=== PATIENT | female | born 1990 | race Caucasian/White ===

== ENCOUNTER 2018-06-13 20:16 | Inpatient (IN) ==
--- NOTE | 2018-06-13 21:38 | ED ---
History of Present Illness Primary Care Physician: [facility] Chief Complaint: Contractions History of Present Illness: 27-year-old at 39 weeks complains of contractions today Weeks Gestation:: 39 Para: 0 : 2 Review of Systems All other systems reviewed negative except as stated in HPI Medications and Allergies Allergies Allergy/AdvReac Type Severity Reaction Status Date / Time No Known Allergies Allergy none Uncoded 06/13/18 20:50 Home Medications Medication Instructions Recorded Confirmed Type PNV cmb#95-ferrous fumarate-FA 1 tab PO DAILY 06/13/18 06/13/18 History [] ferrous sulfate 1 tab PO DAILY 06/13/18 06/13/18 History Exam Vital signs: Vital Signs 06/13/18 20:47 06/13/18 20:48 06/13/18 20:49 Temperature 97.8 F Pulse Rate 86 85 Respiratory Rate 18 Blood Pressure 146/91 H 136/85 06/13/18 20:54 06/13/18 21:00 06/13/18 21:16 Temperature Pulse Rate 87 90 83 Respiratory Rate Blood Pressure 136/86 146/82 H 120/71 Intake & Output 06/13/18 06/13/18 06/14/18 06:59 18:59 06:59 Weight 75.296 kg - Constitutional mild distress - Routine HEENT Exam ENT: Present: mucous membranes moist - Routine Neck Exam Present: supple - Routine Chest/Breast/Axilla Exam Chest wall: Absent: tenderness - Routine Respiratory Exam Present: CTA bilaterally - Routine Cardiovascular Exam Present: RRR - Routine Abdominal Exam Present: soft Comments: Gravid contractions palpable - Routine Exam Comments: Cervix 1 cm dilated 50% effaced -3 station heart rate baseline 120 Results - Imaging Bedside ultrasound reveals an DARVIN of 6.49 only 1 quadrant? Possible meconium Assessment and Plan - Diagnosis (1) 39 weeks gestation of Code(s): Z3A.39 - 39 weeks gestation of Status: Acute (2) Oligohydramnios Code(s): O41.00X0 - Oligohydramnios, unspecified trimester, not applicable or unspecified Status: Acute - Plan Discussed with the patient near oligo present-suspect possible meconium. Err on the side of caution admit and induce labor no benefit prolonging Discharge Plan - Discharge Condition Condition: Good - Physicians Team Primary Care Provider: Ximena Clayton Attending Provider: Toya Pa - Rxs /Orders / Referrals /Forms Prescriptions: No Action ferrous sulfate 325 mg (65 mg iron) Tablet 1 tab PO DAILY PNV cmb#95-ferrous fumarate-FA [] 28 mg iron- 800 mcg Tablet 1 tab PO DAILY Referrals: Ximena Clayton MD [Primary Care Provider] - See Instructions
[2018-06-13] MEDS ORDERED: Sod Chloride 0.9% Inj 1,000 ML IV.CONT PRN (22:09)
[2018-06-13] MEDS ORDERED: Naloxone Inj 0.4 MG/ML Vial IV.PUSH PRN (22:09)
[2018-06-13] MEDS ORDERED: Sodium Chlor 0.9% Inj 500 ML IV.SIG PRN (22:09)
[2018-06-13] MEDS ORDERED: Oxytocin 30 Units/500ml Premix 30 UNITS/500 ML BAG IV.SIG ONE (22:09)
[2018-06-13] MEDS ORDERED: fentaNYL Citrate Inj 100 MCG/2 ML Ampul IV.PUSH PRN ×2 (22:09)
[2018-06-13] MEDS ORDERED: Citric Acid/Sodium Citrate Liq 30 ML UDC PO SCH (22:15)
--- NOTE | 2018-06-13 22:22 | P.HPOB ---
Patient Name: Veronica Solorzano Date of : 89 Patient Status: Inpatient Attending Provider: Toya Pa Date: 06/13/18 21:34 Initialization Date: 06/13/18 21:34 History of Present Illness Primary Care Physician: [facility] Chief Complaint: Contractions History of Present Illness: 27-year-old at 39 weeks complains of contractions today Weeks Gestation:: 39 Para: 0 : 2 Review of Systems All other systems reviewed negative except as stated in HPI Medications and Allergies Allergies Allergy/AdvReac Type Severity Reaction Status Date / Time No Known Allergies Allergy none Uncoded 06/13/18 20:50 Home Medications Medication Instructions Recorded Confirmed Type PNV cmb#95-ferrous fumarate-FA 1 tab PO DAILY 06/13/18 06/13/18 History [] ferrous sulfate 1 tab PO DAILY 06/13/18 06/13/18 History Exam Vital signs: Vital Signs 06/13/18 20:47 06/13/18 20:48 06/13/18 20:49 Temperature 97.8 F Pulse Rate 86 85 Respiratory Rate 18 Blood Pressure 146/91 H 136/85 06/13/18 20:54 06/13/18 21:00 06/13/18 21:16 Temperature Pulse Rate 87 90 83 Respiratory Rate Blood Pressure 136/86 146/82 H 120/71 Intake & Output 06/13/18 06/13/18 06/14/18 06:59 18:59 06:59 Weight 75.296 kg - Constitutional mild distress - Routine HEENT Exam ENT: Present: mucous membranes moist - Routine Neck Exam Present: supple - Routine Chest/Breast/Axilla Exam Chest wall: Absent: tenderness - Routine Respiratory Exam Present: CTA bilaterally - Routine Cardiovascular Exam Present: RRR - Routine Abdominal Exam Present: soft Comments: Gravid contractions palpable - Routine Exam Comments: Cervix 1 cm dilated 50% effaced -3 station heart rate baseline 120 accelerations are present however episodic small variables noted ( decels ) short and quick Results - Imaging Bedside ultrasound reveals an DARVIN of 6.49 only 1 quadrant? Possible meconium Assessment and Plan - Diagnosis (1) 39 weeks gestation of Code(s): Z3A.39 - 39 weeks gestation of Status: Acute (2) Oligohydramnios Code(s): O41.00X0 - Oligohydramnios, unspecified trimester, not applicable or unspecified Status: Acute - Plan Discussed with the patient near oligo present-suspect possible meconium. Err on the side of caution admit and induce labor no benefit prolonging Discharge Plan - Discharge Condition Condition: Good - Physicians Team Primary Care Provider: Ximena Clayton Attending Provider: Toya Pa - Rxs /Orders / Referrals /Forms Prescriptions: No Action ferrous sulfate 325 mg (65 mg iron) Tablet 1 tab PO DAILY PNV cmb#95-ferrous fumarate-FA [] 28 mg iron- 800 mcg Tablet 1 tab PO DAILY Referrals: Ximena Clayton MD [Primary Care Provider] - See Instructions
[2018-06-13] MEDS ORDERED: Famotidine PF Inj 20 MG/2 ML Vial IV.PUSH SCH (23:15)
[2018-06-13 23:32] LABS: Baso % (Auto) 0.2 % (0.0-2.0); Eos # (Auto) 0.2 th/mm3 (0.0-0.4); Hematocrit 33.6 % (35.0-46.0); Hemoglobin 11.2 gm/dL (11.6-15.3); Lymph # (Auto) 1.8 th/mm3 (1.0-4.8); Lymph % (Auto) 20.4 % (9.0-44.0); Mean Corpuscular HGB Conc 33.3 % (32.0-36.0); Mean Corpuscular Hemoglobin 26.8 pg (27.0-34.0); Mean Corpuscular Volume 80.6 fL (80.0-100.0); Mean Platelet Volume 9.5 fL (7.0-11.0); Mono # (Auto) 0.6 th/mm3 (0.0-0.9); Mono % (Auto) 6.9 % (0.0-8.0); Neut # (Auto) 6.3 th/mm3 (1.8-7.7); Neut % (Auto) 70.5 % (16.0-70.0); Platelet Count 171 th/mm3 (150-450); Red Blood Count 4.17 mil/mm3 (4.00-5.30); Red Cell Distribution Width 13.6 % (11.6-17.2)
[2018-06-13 23:52] LABS: Amorphous Sediment,Urine Rare /hpf; Bacteria,Urine Rare /hpf; Bilirubin,Urine Negative (Negative); Clarity,Urine Cloudy (Clear); Color,Urine Yellow (Yellw/Straw); Glucose,Urine (UA) Negative (Negative); Leukocyte Esterase,Urine Moderate (Negative); Mucus,Urine Few /lpf (Occasional); Nitrite,Urine Negative (Negative); Specific Gravity,Urine 1.008 (1.002-1.035); Squamous Epithelial Cell,Urine 3 /hpf (0-5)
[2018-06-14] MEDS ORDERED: fentaNYL 2MCG-Bupiv 0.125% Epi 150 ML EPIDURAL ONE (00:42)
[2018-06-14] MEDS ORDERED: Lidocaine PF 1.5% Inj 20 ML Ampule ONE (00:55)
[2018-06-14] MEDS ORDERED: Lidocaine 2%/Epinephrine 1:100,000 Inj 20 ML Vial ONE (00:58)
[2018-06-14] MEDS ORDERED: fentaNYL 2MCG-Bupiv 0.125% Epi 150 ML EPIDURAL PRN (01:30)
[2018-06-14] MEDS ORDERED: fentaNYL Citrate Inj 100 MCG/2 ML Ampul EPIDURAL ONE (01:30)
[2018-06-14 02:54] LABS: Amphetamine Urine With Conf Neg (Neg); Benzodiazepine Urine With Conf Neg (Neg)
[2018-06-14] MEDS ORDERED: Oxytocin 30 Units/500ml Premix 30 UNITS/500 ML BAG IV.CONT PRN (05:44)
--- NOTE | 2018-06-14 13:58 | P.OBLABOR ---
Subjective Interval history: Patient reports some nausea and emesis with PO in the morning. She is otherwise laboring well and has no concerns at this time. Objective Vital Signs: Vital Signs - 8 hr 06/14/18 06:01 06/14/18 06:31 06/14/18 07:00 Temperature 98.7 F Pulse Rate 99 H 101 H Respiratory Rate 18 18 Blood Pressure 125/67 112/57 L 06/14/18 07:01 06/14/18 07:36 06/14/18 07:45 Temperature 99.3 F Pulse Rate 97 H 106 H Respiratory Rate 16 Blood Pressure 112/73 130/84 06/14/18 08:01 06/14/18 08:30 06/14/18 09:29 Temperature 98.4 F Pulse Rate 102 H 99 H Respiratory Rate Blood Pressure 127/77 123/72 06/14/18 09:31 06/14/18 10:00 06/14/18 10:53 Temperature Pulse Rate 102 H 97 H 97 H Respiratory Rate 18 18 Blood Pressure 130/78 137/84 125/76 06/14/18 11:00 06/14/18 11:01 06/14/18 11:36 Temperature 98.4 F 98.9 F Pulse Rate 98 H 93 H Respiratory Rate 18 Blood Pressure 113/67 110/61 06/14/18 12:00 06/14/18 12:30 06/14/18 13:02 Temperature Pulse Rate 100 H 102 H 100 H Respiratory Rate Blood Pressure 113/65 129/78 117/75 06/14/18 13:30 Temperature Pulse Rate 92 H Respiratory Rate Blood Pressure 116/66 Objective: General: Alert, well appearing, in no acute distress Skin: Warm and dry HEENT: Atraumatic. Moist mucus membranes Cardiac: Regular rate and rhythm without murmur Pulmonary: No increased work of breathing. Clear to auscultation bilaterally with good air movement. Abdominal: Non-tender. + Bowel sounds. Gravid uterus Extremities: 2+ pedal pulses, no edema, no calf tenderness Genitourinary: Last Cervical Exam: / -1 Membranes: AROM at 0030 on 06/14/18 Uterine Contractions: every 2-4 minutes FHT's: Category: 2 Baseline: 130 Reactive: no Variability: moderate Decels: Intermittent late and variables Weeks Gestation: 39 Patient Started Active Labor: Yes Medical Induction of Labor: No Artificial Rupture of Membrane: Yes Artificial ROM Date: 06/14/18 Artificial ROM Time: 00:33 Assessment and Plan - Diagnosis (1) 39 weeks gestation of Code(s): Z3A.39 - 39 weeks gestation of Status: Acute (2) Oligohydramnios Code(s): O41.00X0 - Oligohydramnios, unspecified trimester, not applicable or unspecified Status: Acute - Plan Patient is a at 39 weeks 4 days in active labor -Has had nausea and emesis, Zofran 4mg IV given at 10:00 -Pitocin currently a 4mu/min -At this point she has adequate contractions and is progressing well -FHT shows some accelerations, but does not always meet full reactive criteria -There are some decelerations with <50% of contractions -Variability remains moderate -Continue current management with close monitoring
[2018-06-14] MEDS ORDERED: Morphine Sulfate PF Inj 5 MG/10 ML Ampul ONE (16:06)
[2018-06-14] MEDS ORDERED: ceFAZolin 2 GM Premix Inj 2 GM/50 ML PIGGYBACK IV.SIG PRN (16:09)
--- NOTE | 2018-06-14 16:12 | P.OBGPN ---
Pt has had several mild decelerations, however she has maintained moderate variability. I personally examined her and she was 5-6/90/-3 with bloody fluid and OP with compound hand presentation. Manual rotation of fetus was successful however FHTs dropped to 80s. Repositioning and O2 increased FHTs to 100s but still lower than baseline. Pt was counseled on NRFHTs remote from delivery and high station concerning for ability to have a successful vaginal delivery. She agreed to proceed with c/s delivery. R/B/A of were discussed with the patient. Specifically we reviewed risks of bleeding, infection, pain, injury to baby or internal organs/nerves/ vessels/structures. She voiced understanding, all questions were answered, and consents were signed. Orders have been placed, bicitra and antibiotics administered, SCDs and de león placed, and RN/ANES/NICU/Charge notified.
[2018-06-14] MEDS ORDERED: Citric Acid/Sodium Citrate Liq 30 ML UDC PO SCH (16:15)
[2018-06-14 17:00] LABS: Cord Arterial Blood HCO3 25.7
[2018-06-14] MEDS ORDERED: Simethicone 80 MG Chew Tablet PO PRN (17:22)
[2018-06-14] MEDS ORDERED: Oxytocin 30 Units/500ml Premix 30 UNITS/500 ML BAG IV.SIG ONE (17:22)
--- NOTE | 2018-06-14 17:26 | P.OP ---
- Preoperative Diagnosis (1) Non-reassuring electronic monitoring tracing (2) 39 weeks gestation of (3) Oligohydramnios Date of procedure: 06/14/18 Procedure: 1'LTCS Anesthesia: epidural Surgeon: Rigoberto Cordova MD Estimated blood loss (mL): 800 IV fluids (mL): 1,000 Urine output (mL): 100 Pathology: other (cord blood, cord pH) Operation and Findings: Antibiotics: 2g ancef DVT prophylaxis: SCDs were in place and active throughout the entire procedure Findings: vtx male delivered at 18:25 wt 3200g with APGARs 8/9, normal tubes/ ovaries Complications: none Disposition: to PACU in stable condition Indication: 27y/o @ 39.4wks admitted for oligo and underwent IOL. Had OP presentation, protracted labor, and NRFHTs remote from delivery. Technique: The R/B/A were discussed with the pt, all questions answered, and consents signed. The pt was taken to the operating room where epidural anesthesia was found to be adequate. She was prepped and draped in the normal sterile fashion in the dorsal supine position with leftward tilt. A Pfannenstiel skin incision was made with the scalpel and carried through to the underlying layer of fascia. The fascia was incised in the midline and the incision extended laterally with Worthington scissors. The superior aspect of the fascial incision was grasped with Anton clamps, elevated, and the underlying rectus muscles dissected off bluntly and with Worthington scissors. Attention was then turned to the inferior aspect of this incision which, in a similar fashion, was grasped, tented up with Anton clamps, and the rectus muscles dissected off bluntly and with Worthington scissors. The rectus muscles were in the midline , and the peritoneum identified and entered bluntly. The peritoneal incision was stretched with good visualization of the bladder. The bladder blade was inserted and the vesicouterine peritoneum identified, grasped with pick-ups, and entered sharply with Metzenbaum scissors. This incision was extended laterally and a bladder flap created digitally. The bladder blade was then reinserted and the lower uterine segment incised in a transverse fashion with the scalpel. The uterine incision was stretched superiorly and inferiorly. The bladder blade was removed and the 's head delivered atraumatically followed by the body. Delayed cord clamping ensued for 45sec while the infant was dried, suctioned, and stimulated. The cord was double clamped and cut and handed off to the waiting team. The placenta expelled with manual fundal massage. The uterus was exteriorized and cleared of all clots and debris. The uterine incision was repaired with 0- vicryl in a running, locked fashion. A second layer using 0-monocryl suture was used. Extra bleeding ensued. Figure of eight sutures using additional 0- monocryl were used to control. The underneath portion of the bladder was also oversewn with 3-0 monocryl. The posterior cul-de-sac was suctioned and the uterus was returned to the abdomen. The gutters were cleared of all clots and debris. The rectus fascia was reapproximated with a figure of eight stitch using monocryl. The underneath fascia was inspected and found to be hemostatic. The fascia was closed with 0-vicryl in a running fashion. The subcutaneous layer was reapproximated with plain gut running in two layers. The skin was closed with 4-0 monocryl and the incision dressed appropriately. The patient tolerated the procedure well. She was taken to the recovery room in stable condition. Sponge, lap, instrument, and needle counts were correct x3.
[2018-06-14] MEDS ORDERED: ceFAZolin Inj 2,000 MG in Sodium Chlor 0.9% Inj 80 ML IV.SIG SCH (18:00)
[2018-06-14] MEDS ORDERED: Ketorolac Inj 30 MG/ML (IVP) Vial ONE (18:17)
[2018-06-14] MEDS: Ketorolac Inj 30 MG/ML (IVP) Vial IV.PUSH PRN (18:28)
[2018-06-14] MEDS ORDERED: Naloxone Inj 0.4 MG/ML Vial IV.PUSH PRN (18:47)
[2018-06-14] MEDS ORDERED: Oxytocin 30 Units/500ml Premix 30 UNITS/500 ML BAG IV.SIG PRN (22:22)
[2018-06-14] MEDS ORDERED: Citric Acid/Sodium Citrate Liq 30 ML UDC PO ONE (22:30)
[2018-06-14 22:46] LABS: Baso % (Auto) 0.1 % (0.0-2.0); Eos % (Auto) 0.1 % (0.0-4.0); Hemoglobin 9.6 gm/dL (11.6-15.3); Lymph % (Auto) 5.8 % (9.0-44.0); Mean Corpuscular HGB Conc 33.1 % (32.0-36.0); Mean Corpuscular Hemoglobin 26.3 pg (27.0-34.0); Mean Corpuscular Volume 79.6 fL (80.0-100.0); Mean Platelet Volume 9.2 fL (7.0-11.0); Mono # (Auto) 0.9 th/mm3 (0.0-0.9); Mono % (Auto) 5.1 % (0.0-8.0); Neut # (Auto) 15.1 th/mm3 (1.8-7.7); Neut % (Auto) 88.9 % (16.0-70.0); Platelet Count 158 th/mm3 (150-450); Red Blood Count 3.64 mil/mm3 (4.00-5.30); Red Cell Distribution Width 13.4 % (11.6-17.2)
[2018-06-15] MEDS: Ketorolac Inj 30 MG/ML (IVP) Vial IV.PUSH PRN ×2 (00:52→06:35)
[2018-06-15] MEDS: ceFAZolin 2 GM Premix Inj 2 GM/50 ML PIGGYBACK IV.SIG SCH ×2 (00:52→08:13)
[2018-06-15 08:15] LABS: Baso % (Auto) 0.1 % (0.0-2.0); Eos # (Auto) 0.1 th/mm3 (0.0-0.4); Eos % (Auto) 0.5 % (0.0-4.0); Hematocrit 24.7 % (35.0-46.0); Hemoglobin 8.2 gm/dL (11.6-15.3); Lymph # (Auto) 1.5 th/mm3 (1.0-4.8); Lymph % (Auto) 12.2 % (9.0-44.0); Mean Corpuscular HGB Conc 33.1 % (32.0-36.0); Mean Corpuscular Hemoglobin 26.8 pg (27.0-34.0); Mono # (Auto) 0.8 th/mm3 (0.0-0.9); Mono % (Auto) 6.4 % (0.0-8.0); Neut # (Auto) 10.2 th/mm3 (1.8-7.7); Neut % (Auto) 80.8 % (16.0-70.0); Platelet Count 146 th/mm3 (150-450); Red Blood Count 3.05 mil/mm3 (4.00-5.30); Red Cell Distribution Width 13.6 % (11.6-17.2); White Blood Count 12.7 th/mm3 (4.0-11.0)
[2018-06-15] MEDS ORDERED: Diphtheria/Tetanus/Pertussis Vaccine Inj 0.5 ML Syringe IM ONE (16:00)
[2018-06-15] MEDS ORDERED: Measles/Mumps/Rubella Vaccine Inj 0.5 ML Vial SQ ONE (16:00)
[2018-06-15] MEDS: Senna/Docusate Sodium 8.6/50 MG Tablet PO PRN (22:37)
--- NOTE | 2018-06-16 09:50 | P.PNOB ---
Subjective Post op day: 2 Interval history: Postoperative day number 2. AFVSS overnight. Pain well-controlled. Incision not draining. Decreased lochia. Denies dysuria. No breast tenderness. She is feeding the baby via bottle. Appetite good. No nausea or vomiting. + flatus. no bowel movement. Ambulating well. Denies calf pain, shortness of breath, or cough. Otherwise, she is doing well this morning and has no other complaints. Objective Vital Signs/I&O: Vital Signs 06/15/18 12:00 06/15/18 19:26 06/16/18 08:00 Temperature 98.0 F 97.8 F 97.5 F L Pulse Rate 81 76 81 Respiratory Rate 20 20 16 Blood Pressure 137/75 106/65 121/83 Result Diagrams: 06/15/18 07:32 Objective Remarks: GENERAL: Well-nourished, well-developed patient. CARDIOVASCULAR: Regular rate and rhythm without murmurs, gallops, or rubs. RESPIRATORY: Breath sounds equal bilaterally. No accessory muscle use. ABDOMEN/GI: Abdomen soft, non-tender, bowel sounds present. Incision: Clean, dry and intact. Fundus: Firm, non-tender at umbilicus. GENITOURINARY: Light to moderate bleeding. EXTREMITIES: No cyanosis or edema, non-tender, without signs of DVT. Medications and IVs: Active Medications Citric Acid/Sodium Citrate (Sodium Citrate/Citric Acid Liq) 30 ml PO EMBEDDED LINUX ENGINEER [facility] Stop: 06/18/18 16:14 Fentanyl Citrate (Fentanyl Inj) 50 mcg IV.PUSH Q1H PRN PRN Reason: Pain Scale 3 - 5 Fentanyl Citrate (Fentanyl Inj) 100 mcg IV.PUSH Q1H PRN PRN Reason: PAIN SCALE 6 TO 10 Lactated Ringer's (Lr 1000 Ml Inj) 1,000 mls @ 3,000 mls/hr IV.SIG UNSCH PRN PRN Reason: compromise or epidural Last Admin: 06/14/18 04:47 Dose: 3,000 mls/hr Lactated Ringer's (Lr 1000 Ml Inj) 1,000 mls @ 125 mls/hr IV.CONT .Q8H [facility] Last Admin: 06/16/18 06:46 Dose: Not Given Sodium Chloride (Ns Inj) 500 mls @ 1,000 mls/hr IV.SIG UNSCH PRN PRN Reason: SEE LABEL COMMENTS Sodium Chloride (Ns Inj) 1,000 mls @ 100 mls/hr IV.CONT .Q10H PRN PRN Reason: SEE LABEL COMMENTS Fentanyl/Bupivacaine/Sodium Chlor (Fentanyl 2 Mcg-Bupiv 0.125% Epi) 150 mls @ 12 mls/hr EPIDURAL PRN PRN PRN Reason: for Labor Pain Last Admin: 06/14/18 04:47 Dose: 12 mls/hr Oxytocin (Pitocin 30 Units/Ns 500 Ml Premix) 30 units in 500 mls @ 1 mls/hr IV.CONT TITRATE PRN; Protocol PRN Reason: For induction of labor Last Admin: 06/14/18 05:59 Dose: 1 milliunit/min, 1 mls/hr Cefazolin Sodium/Dextrose (Ancef 2 Gm Premix Inj) 2 gm in 50 mls @ 100 mls/hr IV.SIG EMBEDDED LINUX ENGINEER PRN PRN Reason: surgery Stop: 06/18/18 16:08 Lactated Ringer's (Lr 1000 Ml Inj) 1,000 mls @ 150 mls/hr IV.CONT .Q6H40M JAQUI Last Admin: 06/15/18 01:26 Dose: Not Given Oxytocin (Pitocin 30 Units/Ns 500 Ml Premix) 30 units in 500 mls @ 100 mls/hr IV.SIG UNSCH PRN PRN Reason: Heavy bleeding Ibuprofen (Motrin) 800 mg PO Q8H PRN PRN Reason: cramping Last Admin: 06/15/18 22:37 Dose: 800 mg Lidocaine HCl (Xylocaine 1% Inj) 0.1 ml I-DERMAL PRN PRN PRN Reason: For IV start Stop: 06/16/18 22:08 Mineral Oil (Muri-Lube Oil) 10 ml TOPICAL PRN PRN PRN Reason: PRN perineal massage Naloxone HCl (Narcan Inj) 0.1 mg IV.PUSH Q2M PRN PRN Reason: for opiate reversal Ondansetron HCl (Zofran Inj) 4 mg IV.PUSH Q6H PRN PRN Reason: NAUSEA OR VOMITING Oxycodone/Acetaminophen (Percocet 5/325 Mg) 1 tab PO Q4H PRN PRN Reason: PAIN SCALE 3 TO 5 Oxycodone/Acetaminophen (Percocet 5/325 Mg) 2 tab PO Q4H PRN PRN Reason: PAIN SCALE 6 TO 10 Last Admin: 06/16/18 08:01 Dose: 2 tab Senna/Docusate Sodium (Kaycee-Colace) 2 tab PO Q12H PRN PRN Reason: CONSTIPATION Last Admin: 06/15/18 22:37 Dose: 2 tab Simethicone (Mylicon Chew) 80 mg PO QID PRN PRN Reason: FLATULENCE Sodium Chloride (Ns Flush) 2 ml IV.FLUSH BID JAQUI Last Admin: 06/15/18 22:03 Dose: Not Given Sodium Chloride (Ns Flush) 2 ml IV.FLUSH PRN PRN PRN Reason: FLUSH AFTER USING IV ACCESS Assessment and Plan - Diagnosis (1) 39 weeks gestation of Code(s): Z3A.39 - 39 weeks gestation of Status: Acute (2) Oligohydramnios Code(s): O41.00X0 - Oligohydramnios, unspecified trimester, not applicable or unspecified Status: Acute - Plan 27 y/o female who is POD# 2 s/p CXN. -Continue routine care. -Percocet and Motrin PRN pain. -Encouraged OOB. Advised pelvic rest for 6 wks. Will need a f/u appt. in 1 wk for incision check. -Re: ctrl, she would like to consider her options. -D/c tomorrow. arnaldo Erazo
[2018-06-16] MEDS: Senna/Docusate Sodium 8.6/50 MG Tablet PO PRN (16:54)
[2018-06-17 06:00] LABS: Baso % (Auto) 0.2 % (0.0-2.0); Eos # (Auto) 0.2 th/mm3 (0.0-0.4); Eos % (Auto) 2.2 % (0.0-4.0); Hematocrit 24.6 % (35.0-46.0); Hemoglobin 8.1 gm/dL (11.6-15.3); Lymph % (Auto) 18.8 % (9.0-44.0); Mean Corpuscular HGB Conc 32.9 % (32.0-36.0); Mean Corpuscular Hemoglobin 26.6 pg (27.0-34.0); Mean Corpuscular Volume 80.9 fL (80.0-100.0); Mean Platelet Volume 8.1 fL (7.0-11.0); Mono # (Auto) 0.5 th/mm3 (0.0-0.9); Mono % (Auto) 4.7 % (0.0-8.0); Neut # (Auto) 7.7 th/mm3 (1.8-7.7); Neut % (Auto) 74.1 % (16.0-70.0); Platelet Count 239 th/mm3 (150-450); Red Blood Count 3.04 mil/mm3 (4.00-5.30); Red Cell Distribution Width 13.6 % (11.6-17.2); White Blood Count 10.4 th/mm3 (4.0-11.0)
--- NOTE | 2018-06-17 08:38 | P.PNOB ---
Subjective Post op day: 3 Interval history: Postoperative day number 3. AFVSS overnight. Pain well-controlled. Incision not draining. Decreased lochia. Denies dysuria. No breast tenderness. She is feeding the baby via bottle. Appetite good. No nausea or vomiting. + flatus. no bowel movement. Ambulating well. Denies calf pain, shortness of breath, or cough. Otherwise, she is doing well this morning and has no other complaints. Objective Vital Signs/I&O: Vital Signs 06/16/18 19:30 06/16/18 19:45 06/17/18 07:20 Temperature 96.3 F L 98.0 F Pulse Rate 93 H 83 Respiratory Rate 16 18 Blood Pressure 133/78 139/93 H Result Diagrams: 06/17/18 05:32 Objective Remarks: GENERAL: Well-nourished, well-developed patient. CARDIOVASCULAR: Regular rate and rhythm without murmurs, gallops, or rubs. RESPIRATORY: Breath sounds equal bilaterally. No accessory muscle use. ABDOMEN/GI: Abdomen soft, non-tender, bowel sounds present. Incision: Clean, dry and intact. Fundus: Firm, non-tender at umbilicus. GENITOURINARY: Light to moderate bleeding. EXTREMITIES: No cyanosis or edema, non-tender, without signs of DVT. Medications and IVs: Active Medications Citric Acid/Sodium Citrate (Sodium Citrate/Citric Acid Liq) 30 ml PO APPLICATION SUPPORT TECHNICIAN [facility] Stop: 06/18/18 16:14 Fentanyl Citrate (Fentanyl Inj) 50 mcg IV.PUSH Q1H PRN PRN Reason: Pain Scale 3 - 5 Fentanyl Citrate (Fentanyl Inj) 100 mcg IV.PUSH Q1H PRN PRN Reason: PAIN SCALE 6 TO 10 Lactated Ringer's (Lr 1000 Ml Inj) 1,000 mls @ 3,000 mls/hr IV.SIG UNSCH PRN PRN Reason: compromise or epidural Last Admin: 06/14/18 04:47 Dose: 3,000 mls/hr Lactated Ringer's (Lr 1000 Ml Inj) 1,000 mls @ 125 mls/hr IV.CONT .Q8H [facility] Last Admin: 06/17/18 03:45 Dose: Not Given Sodium Chloride (Ns Inj) 500 mls @ 1,000 mls/hr IV.SIG UNSCH PRN PRN Reason: SEE LABEL COMMENTS Sodium Chloride (Ns Inj) 1,000 mls @ 100 mls/hr IV.CONT .Q10H PRN PRN Reason: SEE LABEL COMMENTS Fentanyl/Bupivacaine/Sodium Chlor (Fentanyl 2 Mcg-Bupiv 0.125% Epi) 150 mls @ 12 mls/hr EPIDURAL PRN PRN PRN Reason: for Labor Pain Last Admin: 06/14/18 04:47 Dose: 12 mls/hr Oxytocin (Pitocin 30 Units/Ns 500 Ml Premix) 30 units in 500 mls @ 1 mls/hr IV.CONT TITRATE PRN; Protocol PRN Reason: For induction of labor Last Admin: 06/14/18 05:59 Dose: 1 milliunit/min, 1 mls/hr Cefazolin Sodium/Dextrose (Ancef 2 Gm Premix Inj) 2 gm in 50 mls @ 100 mls/hr IV.SIG APPLICATION SUPPORT TECHNICIAN PRN PRN Reason: surgery Stop: 06/18/18 16:08 Lactated Ringer's (Lr 1000 Ml Inj) 1,000 mls @ 150 mls/hr IV.CONT .Q6H40M JAQUI Last Admin: 06/15/18 01:26 Dose: Not Given Oxytocin (Pitocin 30 Units/Ns 500 Ml Premix) 30 units in 500 mls @ 100 mls/hr IV.SIG UNSCH PRN PRN Reason: Heavy bleeding Ibuprofen (Motrin) 800 mg PO Q8H PRN PRN Reason: cramping Last Admin: 06/17/18 00:48 Dose: 800 mg Mineral Oil (Muri-Lube Oil) 10 ml TOPICAL PRN PRN PRN Reason: PRN perineal massage Naloxone HCl (Narcan Inj) 0.1 mg IV.PUSH Q2M PRN PRN Reason: for opiate reversal Ondansetron HCl (Zofran Inj) 4 mg IV.PUSH Q6H PRN PRN Reason: NAUSEA OR VOMITING Oxycodone/Acetaminophen (Percocet 5/325 Mg) 1 tab PO Q4H PRN PRN Reason: PAIN SCALE 3 TO 5 Oxycodone/Acetaminophen (Percocet 5/325 Mg) 2 tab PO Q4H PRN PRN Reason: PAIN SCALE 6 TO 10 Last Admin: 06/17/18 05:20 Dose: 2 tab Senna/Docusate Sodium (Kaycee-Colace) 2 tab PO Q12H PRN PRN Reason: CONSTIPATION Last Admin: 06/16/18 16:54 Dose: 2 tab Simethicone (Mylicon Chew) 80 mg PO QID PRN PRN Reason: FLATULENCE Sodium Chloride (Ns Flush) 2 ml IV.FLUSH BID JAQUI Last Admin: 06/17/18 00:48 Dose: Not Given Sodium Chloride (Ns Flush) 2 ml IV.FLUSH PRN PRN PRN Reason: FLUSH AFTER USING IV ACCESS Assessment and Plan - Diagnosis (1) 39 weeks gestation of Code(s): Z3A.39 - 39 weeks gestation of Status: Acute (2) Oligohydramnios Code(s): O41.00X0 - Oligohydramnios, unspecified trimester, not applicable or unspecified Status: Acute - Plan 27 y/o female who is POD#3 s/p CXN. -Continue routine care. -Percocet and Motrin PRN pain. -Encouraged OOB. Advised pelvic rest for 6 wks. Will need a f/u appt. in 1 wk for incision check. -Re: ctrl, she would like to consider her options. -D/c today arnaldo Sommers
== END 2018-06-17 13:24 | disposition home or self-care (01) ==
LOC: HOBED 20:16 → H2E 22:10 → H1EA 06-14 18:44
PROVIDERS: ADMIT Obstetrics & Gynecology; ATTEND Obstetrics & Gynecology